=== PATIENT | male | born 1955 | race Caucasian/White ===

== ENCOUNTER → 2020-05-05 | Outpatient (CLI) | payer OTHER | END | disposition home or self-care (01) | LOC: STAR 08:31 | PROVIDERS: ATTEND Anesthesiology | DX: Z01.812 Encounter for preprocedural laboratory examination (principal); Z20.828 Contact with and (suspected) exposure to other viral communicable diseases | CPT/HCPCS: 36415; 87635 ==

== ENCOUNTER 2020-05-10 09:12 | Day surgery (SDC) | payer OTHER ==
[~2020-05-10] VITALS: Ht 175.3 cm; Wt 76.4 kg
[2020-05-10] MEDS ORDERED: LACTATED RINGERS 1,000 ML IV SCH (09:41)
[2020-05-10 09:46] VITALS: BP 120/74
[2020-05-10] MEDS ORDERED: CHLORHEXIDINE 15 ML UDC MM ONE (10:00)
[2020-05-10] MEDS ORDERED: POLY17PO5 PO (10:02)
[2020-05-10] MEDS ORDERED: PRAV10TA2 PO (10:02)
[2020-05-10] MEDS ORDERED: TAMS-11 PO (10:02)
[2020-05-10] MEDS ORDERED: DICLOFENAC GEL TP (10:02)
[2020-05-10] MEDS ORDERED: PROPOFOL 10 MG/ML, 20ML ONE (10:05)
[2020-05-10] MEDS ORDERED: GLYCOPYRROLATE 0.2MG/1ML, 5ML ONE (10:05)
[2020-05-10] MEDS ORDERED: DEXAMETHASONE 4 MG/ML, 1ML ONE (10:05)
[2020-05-10] MEDS ORDERED: LIDOCAINE-MPF 2% ,5ML ONE (10:05)
[2020-05-10] MEDS ORDERED: ROCURONIUM 10MG/ML,5ML ONE (10:05)
[2020-05-10] MEDS ORDERED: MIDAZOLAM 1 MG/ML, 2ML ONE (10:06)
[2020-05-10] MEDS ORDERED: FENTANYL PF 250 MCG/5ML ONE (10:06)
[2020-05-10] MEDS ORDERED: CEFAZOLIN 1,000 MG ONE (10:15)
[2020-05-10] MEDS ORDERED: KETOROLAC 30 MG/1 ML IVPush PRN (10:30)
[2020-05-10] MEDS ORDERED: MEPERIDINE/PF 25MG/0.5ML IVPush PRN (10:30)
[2020-05-10] MEDS ORDERED: MIDAZOLAM 1 MG/ML, 2ML IV PRN (10:30)
[2020-05-10] MEDS ORDERED: ACETAMINOPHEN 325 MG TABLET PO PRN (10:30)
[2020-05-10] MEDS ORDERED: HYDROcodone/APAP 7.5-325MG/15ML UDC PO PRN (10:30)
[2020-05-10] MEDS ORDERED: DIPHENHYDRAMINE 50 MG/ML, 1ML IM PRN (10:30)
[2020-05-10] MEDS ORDERED: DIPHENHYDRAMINE 50 MG/ML, 1ML IVPush PRN (10:30)
[2020-05-10] MEDS ORDERED: METOCLOPRAMIDE 5 MG/ML, 2ML IVPush PRN (10:30)
[2020-05-10] MEDS ORDERED: ALBUTEROL/IPRATROPIUM 2.5MG/0.5MG, 3 ML NPPB PRN (10:30)
[2020-05-10] MEDS ORDERED: FENTANYL PF 100 MCG/2ML IV PRN (10:30)
[2020-05-10] MEDS ORDERED: DIAZEPAM 5 MG/ML, 2ML IVPush PRN (10:30)
[2020-05-10] MEDS ORDERED: HALOPERIDOL 5 MG/ML IV PRN (10:30)
[2020-05-10] MEDS ORDERED: LORazepam 2 MG/ML, 1ML IVPush PRN (10:30)
[2020-05-10] MEDS ORDERED: HYDROmorphone 1 MG/ML, 1ML INJ IVPush PRN (10:30)
[2020-05-10] MEDS ORDERED: LABETALOL 5MG/ML, 20ML IV PRN (10:30)
[2020-05-10] MEDS ORDERED: ONDANSETRON 2MG/ML, 2ML IVPush PRN (10:30)
[2020-05-10] MEDS ORDERED: EPHEDRINE 50 MG/ML, 1ML IVPush PRN (10:30)
[2020-05-10] MEDS ORDERED: EPHEDRINE 50 MG/ML, 1ML IM PRN (10:30)
[2020-05-10] MEDS ORDERED: hydrALAzine 20 MG/ML, 1ML IV PRN (10:30)
[2020-05-10] MEDS ORDERED: OXYcodone 5 MG/5 ML ORAL.SOL UDC PO PRN (10:30)
[2020-05-10] MEDS ORDERED: METHOCARBAMOL 1,000 MG in DEXTROSE 5% 100 ML IV PRN (13:04)
[2020-05-10] MEDS ORDERED: PRAVASTATIN 20 MG TABLET PO SCH (21:00)
[2020-05-11] MEDS ORDERED: TAMSULOSIN 0.4 MG CAP.ER.24H PO SCH (09:00)
== END 2020-05-10 13:40 | disposition home or self-care (01) ==
LOC: OUT 09:12
PROVIDERS: ATTEND Urology
DX: N20.0 Calculus of kidney (principal); N40.0 Benign prostatic hyperplasia without lower urinary tract symptoms; E78.5 Hyperlipidemia, unspecified; Z79.899 Other long term (current) drug therapy; Z87.442 Personal history of urinary calculi
CPT/HCPCS: 50590; 93005; J0690; J1100; J2250; J2704; J3010; J7120

== ENCOUNTER → 2020-08-04 | Outpatient (CLI) | payer OTHER ==
[~2020-08-04] MED LIST: ASPI81TA45 PO; CHOL10003 PO; DICLOFENAC GEL TP; MELA5TAB14 PO; MULT-449 PO; POLY17PO5 PO; PRAV10TA2 PO; TAMS-11 PO; ZINC66TA PO
== END | disposition home or self-care (01) ==
LOC: STAR 08:13
PROVIDERS: ATTEND Urology
DX: Z01.812 Encounter for preprocedural laboratory examination (principal); Z20.828 Contact with and (suspected) exposure to other viral communicable diseases; N20.0 Calculus of kidney; I45.10 Unspecified right bundle-branch block
CPT/HCPCS: 87635; 93005

== ENCOUNTER 2020-08-09 07:26 | Day surgery (SDC) | payer OTHER ==
[~2020-08-09] VITALS: Ht 177.8 cm; Wt 76.4 kg
[2020-08-09 08:15] VITALS: BP 138/83
[2020-08-09] MEDS ORDERED: LACTATED RINGERS 1,000 ML IV SCH (08:30)
[2020-08-09] MEDS ORDERED: CHLORHEXIDINE 15 ML UDC MM ONE (08:30)
[2020-08-09] MEDS ORDERED: MIDAZOLAM 1 MG/ML, 2ML ONE (08:41)
[2020-08-09] MEDS ORDERED: ROCURONIUM 10MG/ML,5ML ONE (09:04)
[2020-08-09] MEDS ORDERED: PROPOFOL 10 MG/ML, 20ML ONE (09:04)
[2020-08-09] MEDS ORDERED: SUCCINYLCHOLINE 20 MG/ML, 10ML ONE (09:04)
[2020-08-09] MEDS ORDERED: DEXAMETHASONE 4 MG/ML, 1ML ONE (09:04)
[2020-08-09] MEDS ORDERED: ONDANSETRON 2MG/ML, 2ML ONE (09:04)
[2020-08-09] MEDS ORDERED: CEFAZOLIN 1,000 MG ONE (09:04)
[2020-08-09] MEDS ORDERED: KETOROLAC 30 MG/1 ML IV PRN (10:00)
[2020-08-09] MEDS ORDERED: MEPERIDINE/PF 25MG/0.5ML IVPush PRN (10:00)
[2020-08-09] MEDS ORDERED: OXYcodone 5 MG/5 ML ORAL.SOL UDC PO PRN (10:00)
[2020-08-09] MEDS ORDERED: METOCLOPRAMIDE 5 MG/ML, 2ML IV PRN (10:00)
[2020-08-09] MEDS ORDERED: FENTANYL PF 100 MCG/2ML IV PRN (10:00)
[2020-08-09] MEDS ORDERED: DIAZEPAM 5 MG/ML, 2ML IV PRN ×2 (10:00)
[2020-08-09] MEDS ORDERED: hydrALAzine 20 MG/ML, 1ML IV PRN (10:00)
[2020-08-09] MEDS ORDERED: LABETALOL 5MG/ML, 20ML IV PRN (10:00)
[2020-08-09] MEDS ORDERED: ONDANSETRON 2MG/ML, 2ML IVPush PRN (10:00)
[2020-08-09] MEDS ORDERED: PROMETHAZINE 25 MG/ML, 1ML IV PRN (10:00)
[2020-08-09] MEDS ORDERED: ALBUTEROL SULFATE 2.5 MG/3 ML NPPB PRN (10:00)
[2020-08-09] MEDS ORDERED: HYDROmorphone 1 MG/ML, 1ML INJ IV PRN (10:00)
[2020-08-09] MEDS ORDERED: MELATONIN 5 MG TABLET PO SCH (21:00)
[2020-08-10] MEDS ORDERED: TAMSULOSIN 0.4 MG CAP.ER.24H PO SCH (09:00)
[2020-08-10] MEDS ORDERED: POLYETHYLENE GLYCOL 17 GM PACKET PO SCH (09:00)
[2020-08-10] MEDS ORDERED: CHOLECALCIFEROL 1,000 UNIT TABLET PO SCH (09:00)
[2020-08-10] MEDS ORDERED: MULTIVITAMIN 1 TABLET PO SCH (09:00)
== END 2020-08-09 13:50 | disposition home or self-care (01) ==
LOC: OUT 07:26
PROVIDERS: ATTEND Urology
DX: N20.0 Calculus of kidney (principal); E78.00 Pure hypercholesterolemia, unspecified; Z79.82 Long term (current) use of aspirin; Z79.899 Other long term (current) drug therapy; Z98.890 Other specified postprocedural states; Z72.89 Other problems related to lifestyle
CPT/HCPCS: 50590; 52356; C1758; C1769; C2617; J0330; J0690; J1100; J2250; J2405; J2704; J7120